=== PATIENT | male | born 1975 | race Hispanic/Latino ===

== ENCOUNTER 2021-11-08 20:54 | Emergency (ER) | payer SELFPAY ==
[2021-11-09] MEDS ORDERED: IBUPROFEN 200 MG TAB PO ONE (00:47)
[2021-11-09] MEDS ORDERED: DOXYCYCLINE 100 MG CAP PO ONE (00:47)
[2021-11-09] MEDS ORDERED: SMZ./TMP. 800/160 MG TABLET ONE (00:47)
--- NOTE | 2021-11-09 00:50 | EDPHYS ---
Physician Documentation [facility] Name: Zhen Mathis Age: 46 yrs Sex: Male : 1975 Arrival Date: 11/08/2021 Time: 20:57 Bed 11 Private MD: ABBY Physician Ron Escoto HPI: 11/09 00:44 This 46 yrs old Male presents to ER via Ambulatory with complaints of Raised cristina bump behind ear. 00:44 The patient presents with cellulitis of the right frontal area. Description: The cristina affected area is small, confluent, erythematous, swollen. Onset: The symptoms/episode began/occurred 3 day(s) ago. Possible cause(s): unknown. Associated signs and symptoms: The patient has no apparent associated signs or symptoms. Modifying factors: the symptoms are alleviated by remaining still, the symptoms are aggravated by pressure, squeezing the lesion and expressing the contents. Severity of symptoms: At their worst the symptoms were moderate, in the emergency department the symptoms are unchanged. The patient has not experienced similar symptoms in the past. Historical: - Allergies: 11/08 21:38 No Known Allergies; bb - Home Meds: 21:38 None [Active]; bb - Immunization history:: Client reports having NOT received the Covid vaccine. - Social history:: Smoking status: Patient denies any tobacco usage or history of. - Family history:: not pertinent. ROS: 11/09 00:44 Constitutional: Negative for fever, chills, and weight loss, Eyes: Negative for injury, cristina pain, redness, and discharge, ENT: Negative for injury, pain, and discharge, Neck: Negative for injury, pain, and swelling, Cardiovascular: Negative for chest pain, palpitations, and edema, Respiratory: Negative for shortness of breath, cough, wheezing, and pleuritic chest pain, Abdomen/GI: Negative for abdominal pain, nausea, vomiting, diarrhea, and constipation, Back: Negative for injury and pain, : Negative for injury, bleeding, discharge, and swelling, MS/Extremity: Negative for injury and deformity, Neuro: Negative for headache, weakness, numbness, tingling, and seizure, Psych: Negative for depression, anxiety, suicide ideation, homicidal ideation, and hallucinations, Allergy/Immunology: Negative for hives, rash, and allergies, Endocrine: Negative for neck swelling, polydipsia, polyuria, polyphagia, and marked weight changes, Hematologic/Lymphatic: Negative for swollen nodes, abnormal bleeding, and unusual bruising. Skin: Positive for cellulitis, erythema, swelling, of the right hinduism and right temporal area. Exam: 00:44 Constitutional: This is a well developed, well nourished patient who is awake, alert, cristina and in no acute distress. Eyes: Pupils equal round and reactive to light, extra-ocular motions intact. Lids and lashes normal. Conjunctiva and sclera are non-icteric and not injected. Cornea within normal limits. Periorbital areas with no swelling, redness, or edema. ENT: Nares patent. No nasal discharge, no septal abnormalities noted. Tympanic membranes are normal and external auditory canals are clear. Oropharynx with no redness, swelling, or masses, exudates, or evidence of obstruction, uvula midline. Mucous membranes moist. Neck: Trachea midline, no thyromegaly or masses palpated, and no cervical lymphadenopathy. Supple, full range of motion without nuchal rigidity, or vertebral point tenderness. No Meningismus. Chest/axilla: Normal chest wall appearance and motion. Nontender with no deformity. No lesions are appreciated. Cardiovascular: Regular rate and rhythm with a normal S1 and S2. No gallops, murmurs, or rubs. Normal PMI, no JVD. No pulse deficits. Respiratory: Lungs have equal breath sounds bilaterally, clear to auscultation and percussion. No rales, rhonchi or wheezes noted. No increased work of breathing, no retractions or nasal flaring. Abdomen/GI: Soft, non-tender, with normal bowel sounds. No distension or tympany. No guarding or rebound. No evidence of tenderness throughout. Back: No spinal tenderness. No costovertebral tenderness. Full range of motion. Male : Normal genitalia with no discharge or lesions. Skin: Warm, dry with normal turgor. Normal color with no rashes, no lesions, and no evidence of cellulitis. MS/ Extremity: Pulses equal, no cyanosis. Neurovascular intact. Full, normal range of motion. Neuro: Awake and alert, GCS 15, oriented to person, place, time, and situation. Cranial nerves II-XII grossly intact. Motor strength 5/5 in all extremities. Sensory grossly intact. Cerebellar exam normal. Normal gait. Psych: Awake, alert, with orientation to person, place and time. Behavior, mood, and affect are within normal limits. 00:44 Head/face: Noted is erythema, swelling, that is mild, of the right hinduism and right temporal area. Vital Signs: 11/08 21:36 BP 139 / 94; Pulse 84; Resp 16 S; Temp 97.8(O); Pulse Ox 100% on R/A; Weight 80.29 kg bb (R); Height 5 ft. 3 in. (160.02 cm) (R); 21:36 Body Mass Index 31.35 (80.29 kg, 160.02 cm) bb MDM: 11/09 00:28 Patient medically screened. cristina 00:44 Differential diagnosis: cellulitis, insect bite. Data reviewed: vital signs, nurses cristina notes. Data interpreted: athletic monitor: rate is 84 beats/min, rhythm is regular, Pulse oximetry: on room air is 80 %. Counseling: I had a detailed discussion with the patient and/or guardian regarding: the historical points, exam findings, and any diagnostic results supporting the discharge/admit diagnosis, lab results, the need for outpatient follow up, for definitive care, a family practitioner. Administered Medications: 00:49 Drug: Motrin (ibuprofen) 600 mg Route: PO; 00:55 Follow up: Response: Medication administered at discharge. 00:49 Drug: Bactrim (trimethoprim-sulfamethoxazole) (160 mg-800 mg (DS) 1 tablet Route: PO; 00:55 Follow up: Response: Medication administered at discharge. 00:49 Drug: Doxycycline 200 mg Route: PO; 00:55 Follow up: Response: Medication administered at discharge. Disposition Summary: 11/09/21 00:49 Discharge Ordered Location: Home cristina Problem: new cristina Symptoms: have improved cristina Condition: Stable cristina Diagnosis - Acute lymphadenitis of face, head and neck cristina - Cellulitis of head [any part, except face] cristina Followup: cristina - With: Private Physician - When: 2 - 3 days - Reason: Recheck today's complaints, Continuance of care, Re-evaluation by your physician Discharge Instructions: - Discharge Summary Sheet cristina - Cellulitis, Adult cristina - Lymphangitis, Pediatric cristina - Cellulitis, Adult, [id number] cristina - Lymphadenopathy cristina Forms: - Medication Reconciliation Form cristina - Thank You Letter cristina - Antibiotic Education cristina - Prescription Opioid Use [facility] Prescriptions: - Ibuprofen 600 mg Oral Tablet - take 1 tablet by ORAL route every 6 hours As needed take with food; 21 tablet; cristina Refills: 0, Product Selection Permitted - Doxycycline Hyclate 100 mg Oral Tablet - take 1 tablet by ORAL route every 12 hours; 20 tablet; Refills: 0, Product [facility] Selection Permitted - Bactrim DS 800-160 mg Oral Tablet - take 1 tablet by ORAL route every 12 hours for 10 days; 20 tablet; Refills: 0, [facility] Product Selection Permitted Signatures: Ron Escoto MD MD cha Ballard, Brenda, RN RN bb
--- NOTE | 2021-11-09 00:50 | ER ---
Nurse's Notes [facility] Name: Zhen Mathis Age: 46 yrs Sex: Male : 1975 Arrival Date: 11/08/2021 Time: 20:57 Bed 11 Private MD: Diagnosis: Acute lymphadenitis of face, head and neck;Cellulitis of head [any part, except face] Presentation: 11/08 21:36 Chief complaint: Patient states: he noticed a bump on his neck and next to his ear also bb one on his head since yesterday. Coronavirus screen: At this time, the client does not indicate any symptoms associated with coronavirus-19. Ebola Screen: No symptoms or risks identified at this time. Initial Sepsis Screen: Does the patient meet any 2 criteria? No. Patient's initial sepsis screen is negative. Does the patient have a suspected source of infection? No. Patient's initial sepsis screen is negative. Risk Assessment: Do you want to hurt yourself or someone else? Patient reports no desire to harm self or others. Onset of symptoms was November 07, 2021. 21:36 Method Of Arrival: Ambulatory bb 21:36 Acuity: TODD 5 bb Triage Assessment: 21:38 General: Appears in no apparent distress. Behavior is calm, cooperative. Pain: Denies bb pain. Neuro: Level of Consciousness is awake, alert, obeys commands, Oriented to person, place, time, situation. Cardiovascular: Capillary refill is > 3 seconds Patient's skin is warm and dry. Respiratory: Respiratory effort is even, unlabored, Respiratory pattern is regular. GI: No signs and/or symptoms were reported involving the gastrointestinal system. Derm: Skin is pink, warm \T\ dry. Reports bumps on head and neck. Musculoskeletal: Circulation, motion, and sensation intact. Historical: - Allergies: 21:38 No Known Allergies; bb - Home Meds: 21:38 None [Active]; bb - Immunization history:: Client reports having NOT received the Covid vaccine. - Social history:: Smoking status: Patient denies any tobacco usage or history of. - Family history:: not pertinent. Screenin/11 00:56 Abuse screen: Denies threats or abuse. Nutritional screening: No deficits noted. bb Tuberculosis screening: No symptoms or risk factors identified. Fall Risk None identified. Assessment: 00:54 Reassessment: No changes from previously documented assessment. Patient is alert, bb oriented x 3, equal unlabored respirations, skin warm/dry/pink. pt verbalized understanding of and agrees to plan of care discharge instructions given pt ambulated with steady gait to exit accompanied by family. Vital Signs: 11/08 21:36 BP 139 / 94; Pulse 84; Resp 16 S; Temp 97.8(O); Pulse Ox 100% on R/A; Weight 80.29 kg bb (R); Height 5 ft. 3 in. (160.02 cm) (R); 21:36 Body Mass Index 31.35 (80.29 kg, 160.02 cm) ED Course: 20:57 Patient arrived in ED. [facility] 21:38 Triage completed. bb 21:38 Arm band placed on Patient placed in waiting room, Patient notified of wait time. bb 11/09 00:28 Ron Escoto MD is Attending Physician. cristina 00:39 Iris Simental, RN is Primary Nurse. bb 00:56 Patient has correct armband on for positive identification. Adult w/ patient. bb 00:56 No provider procedures requiring assistance completed. Patient did not have IV access bb during this emergency room visit. Administered Medications: 00:49 Drug: Motrin (ibuprofen) 600 mg Route: PO; bb 00:55 Follow up: Response: Medication administered at discharge. bb 00:49 Drug: Bactrim (trimethoprim-sulfamethoxazole) (160 mg-800 mg (DS) 1 tablet Route: PO; bb 00:55 Follow up: Response: Medication administered at discharge. bb 00:49 Drug: Doxycycline 200 mg Route: PO; bb 00:55 Follow up: Response: Medication administered at discharge. bb Outcome: 00:49 Discharge ordered by . cristina 00:56 Discharged to home ambulatory, with family. bb 00:56 Condition: stable 00:56 Discharge instructions given to patient, Instructed on discharge instructions, follow up and referral plans. medication usage, Demonstrated understanding of instructions, follow-up care, medications, Prescriptions given X 3. 00:56 Patient left the ED. bb Signatures: Ron Escoto MD MD cha Ballard, Brenda, RN RN Blanca Ferrell [id number]
[2021-11-09 01:02] VITALS: BP 139/94; TEMP 97.8; O2SAT 100
== END 2021-11-09 00:56 | disposition home or self-care (01) ==
LOC: ER 20:54
DX: L03.811 Cellulitis of head [any part, except face] (principal); L04.0 Acute lymphadenitis of face, head and neck
CPT/HCPCS: 99283